=== PATIENT | female | born 1950 | race African-American/Black ===

== ENCOUNTER 2020-04-26 15:50 | Emergency (ER) | payer BC, MEDICARE ==
--- NOTE | 2020-04-26 15:59 | ER Document Report ---
ED Medical Screen (RME) - General Chief Complaint: Hand Injury Stated Complaint: LEFT HAND/WRIST INJURY Time Seen by Provider: 04/26/20 15:56 Notes: HPI: 69-year-old female presenting after fall down some stairs last night. Injured the left wrist. Believes she may have hit her head but did not lose consciousness. Is not on blood thinners. Denies other injuries or complaints. Patient is right-hand dominant. PHYSICAL EXAMINATION: Deformity and bruising is noted to the left wrist. No tenderness over the radial head on palpation of the left elbow. No visible head injury. Answering all questions appropriately. Last ate or drank 30 to 45 minutes ago I have greeted and performed a rapid initial assessment of this patient. A comprehensive ED assessment and evaluation of the patient, analysis of test results and completion of medical decision making process will be conducted by an additional ED providers. TRAVEL OUTSIDE OF THE [place] IN LAST 30 DAYS: No - Related Data Allergies/Adverse Reactions: No Known Allergies Allergy (Verified 04/26/20 15:55) Past Medical History Past Surgical History: Reports: Hx Breast Surgery - reduction - Immunizations Hx Diphtheria, Pertussis, Tetanus Vaccination: Yes
--- NOTE | 2020-04-26 16:46 | RADIOLOGY REPORT (SQ) ---
EXAM DESCRIPTION: WRIST LEFT 3 VIEWS IMAGES COMPLETED DATE/TIME: 04/26/2020 4:31 pm REASON FOR STUDY: wrist fracture COMPARISON: None. EXAM PARAMETERS: NUMBER OF VIEWS: Three views. TECHNIQUE: AP, lateral and oblique radiographic images acquired of the left wrist. LIMITATIONS: None. FINDINGS: MINERALIZATION: Normal. BONES: Comminuted fracture of the distal radius with 1.5 cm impaction and lateral displacement. Radi ocarpal articulation appears intact on the oblique -lateral projection. Scapholunate joint appears w idened at 4 mm suggesting ligament tear. 9 mm ulnar styloid avulsion fracture is 8 mm laterally disp laced. No radiopaque foreign body. OTHER: No other significant finding. IMPRESSION: Comminuted fracture of the distal radius with 1.5 cm impaction and lateral displacement. Radiocarpal articulation appears intact on the oblique projection. Scapholunate joint appears wide douglas at 4 mm suggesting ligament tear. 9 mm ulnar styloid avulsion fracture is 8 mm laterally displace d. TECHNICAL DOCUMENTATION: JOB ID: [id number] [id number] 2010 [employer]- All Rights Reserved Reading location - IP/workstation name: [email or web address]
--- NOTE | 2020-04-26 18:32 | ER Document Report ---
ED Hand/Wrist Injury - General Chief Complaint: Wrist Pain Stated Complaint: LEFT HAND/WRIST INJURY Time Seen by Provider: 04/26/20 15:56 Notes: This 69-year-old woman presents to the emergency department with a history of a fall down steps last night injuring her left forearm and wrist. She has an obvious deformity with swelling noted. She denies any other associated injuries. TRAVEL OUTSIDE OF THE [place] IN LAST 30 DAYS: No - Related Data Allergies/Adverse Reactions: No Known Allergies Allergy (Verified 04/26/20 15:55) Past Medical History - Social History Smoking Status: Never Smoker Family History: Reviewed & Not Pertinent Past Surgical History: Reports: Hx Breast Surgery - reduction - Immunizations Hx Diphtheria, Pertussis, Tetanus Vaccination: Yes Review of Systems - Review of Systems Notes: Constitutional: Negative for fever. HENT: Negative for sore throat. Eyes: Negative for visual changes. Cardiovascular: Negative for chest pain. Respiratory: Negative for shortness of breath. Gastrointestinal: Negative for abdominal pain, vomiting or diarrhea. Genitourinary: Negative for dysuria. Musculoskeletal: See HPI Skin: Negative for rash. Neurological: Negative for headaches, weakness or numbness. 10 point ROS negative except as marked above and in HPI. Physical Exam - Vital signs Vitals: Temp Pulse Resp BP Pulse Ox 99.4 F 110 H 18 132/76 H 97 04/26/20 15:59 04/26/20 15:59 04/26/20 15:59 04/26/20 15:59 04/26/20 15:59 - Notes Notes: PHYSICAL EXAMINATION: Physical Exam: General: Well-nourished well-developed 69-year-old female in no acute distress HEENT: NC/AT, pupils equal round and reactive to light, MM moist,nares clear, oropharynx clear, airway patent Neck: supple, no adenopathy, no masses. Good range of motion Lungs: clear, no wheezing, no rales no rhonchi CVS: Regular rate and rhythm no murmur gallop or rub Abdomen: Soft, active, nontender, no masses, no hepatosplenomegaly Ext: No edema, clubbing or cyanosis. Neuro: Alert and responsive, moving all 4 extremities on command, cranial nerves intact, no focal findings Skin: Intact no open lesions, no rash PSYCH: Normal mood, normal affect. Course - Re-evaluation Re-evalutation: 04/26/20 19:27 I discussed the patient with Dr. Pimentel, orthopedics, he has suggested that the patient be put in a fingertrap 5 pound weight and reduce the fracture put in a volar splint sling and follow-up in his office next week. The patient is told that she has a fracture that likely will require surgery she is to keep splint in place and sling until she sees the orthopedist next week. She is to call the office on Tuesday morning to schedule the appointment. Patient acknowledges understanding of this plan and is being discharged from the emergency department 04/26/20 19:37 Patient was placed in a fingertrap, improved alignment noted, a volar splint was applied and the arm was placed in a sling. - Vital Signs Vital signs: Temp Pulse Resp BP Pulse Ox 99.4 F 110 H 18 132/76 H 97 04/26/20 15:59 04/26/20 15:59 04/26/20 15:59 04/26/20 15:59 04/26/20 15:59 - Diagnostic Test Radiology reviewed: Image reviewed, Reports reviewed Radiology results interpreted by me: 04/26/20 19:28 X-ray left wrist reveal a comminuted fracture of the distal radius with a displacement of the distal fragment. Procedures - Immobilization Left Distal Wrist Time completed: 19:40 Pre-Proc Neuro Vasc Exam: Normal Immobilizer type: Short Leg Posterior Performed by: Provider assisted, Other - Tech and RN Post-Proc Neuro Vasc Exam: Normal Alignment checked and good: Yes Discharge - Discharge Clinical Impression: Closed left radial fracture Qualifiers: Encounter type: initial encounter Radius location: distal Fracture morphology: unspecified fracture morphology Qualified Code(s): S52.502A - Unspecified fracture of the lower end of left radius, initial encounter for closed fracture Condition: Good Disposition: HOME, SELF-CARE Instructions: Fractured Radius and Ulna ([facility]) Additional Instructions: You were seen in the emergency department tonight with a fracture to your distal ulna left hand. Please keep the splint in place, please wear the sling for comfort. You may use ibuprofen for pain or use the pain tablets that you are being sent home with. On Tuesday contact the orthopedist, Dr. Pimentel and you will be scheduled to be seen for further treatment. HOME CARE INSTRUCTIONS & INFORMATION: Thank you for choosing us for your medical needs. We hope you're satisfied with the care you received. After you leave, you must properly care for your problem and, at the same time, observe its progress. Any condition can change. Some illnesses can change rapidly over hours or days. If your condition worsens, return to the Emergency Department or see your physician promptly. ABOUT YOUR X-RAYS AND EKG'S: If you had an EKG or X-rays taken, they have been read by the Emergency Physician. The X-rays and EKG's will also be read by a Radiologist or [employer] within 24 hours. If discrepancies are noted, you will be notified by telephone. Please be certain the ED has a correct telephone number & address where you can be reached. Also, realize that some fractures or abnormalities do not show up on initial X-rays. If your symptoms continue, see your physician. ABOUT YOUR LABORATORY TEST: If you had laboratory tests, the results have been reviewed by the Emergency Physician. Some test results (for example cultures) may not be available for several days. You will be contacted if any test result shows you need additional treatment. Please be certain the ED has a correct telephone number and address where you can be reached. ABOUT YOUR MEDICATIONS: You will receive instructions on how to take your medicine on the prescription label you receive. Additional information may be provided by the Pharmacy. If you have questions afterwards, call the ED for clarification or further instructions. Some prescribed medications may cause drowsiness. Do not perform tasks such as driving a car or operating machinery without consulting your Pharmacist. If you feel you need a refill of pain medication, your condition will need re-evaluation. Please do not call for a refill of any medication. ABOUT YOUR SIGNATURE: Signature of this document acknowledges to followin. Understanding that you received emergency treatment and that you may be released before al medical problems are known or treated. Please be certain the ED has a correct phone number & address where you can be reached. 2. Acknowledgement that you will arrange for follow-up care as recommended. 3. Authorization for the Emergency Physician to provide information to your follow-up Physician in order to maximize your care. AT ANY TIME, IF YOUR SYMPTOMS CHANGE SIGNIFICANTLY OR WORSEN OR YOU DEVELOP NEW SYMPTOMS, RETURN TO THE EMERGENCY DEPARTMENT IMMEDIATELY FOR RE-EVALUATION. OUR GOAL IS TO PROVIDE EXCELLENT MEDICAL CARE! WE HOPE THAT WE HAVE MET YOUR EXPECTATIONS DURING YOUR EMERGENCY DEPARTMENT VISIT AND THAT YOU FEEL YOU HAVE RECEIVED EXCELLENT CARE! Referrals: IRENA PIMENTEL MD [ACTIVE STAFF] - Follow up as needed
[2020-04-26] MEDS ORDERED: HYDROCODONE/ACETAMINOPHEN 5-325 MG (6 TAB/ER DISP) PO PRN (19:42)
[2020-04-26 20:04] VITALS: BP 125/74
== END 2020-04-26 20:04 | disposition home or self-care (01) ==
LOC: ER 15:50
DX: S52.592A Other fractures of lower end of left radius, initial encounter for closed fracture (principal); S52.612A Displaced fracture of left ulna styloid process, initial encounter for closed fracture; W10.9XXA Fall (on) (from) unspecified stairs and steps, initial encounter
CPT/HCPCS: 99284; 73110; 29125; A9270

== ENCOUNTER 2020-05-09 10:36 | Day surgery (SDC) | payer MEDICARE ==
[~2020-05-09 10:36] MED LIST: CEFAZOLIN 2 GM/D5W RTU 2 GM/50 ML RTUPB IV ONE; CEFAZOLIN 2 GM/D5W RTU 2 GM/50 ML RTUPB IV PRN; DEXAMETHASONE SOD PHOSPHATE INJ 4 MG/1 ML VIAL ONE; FENTANYL CITRATE INJ/PF 100 MCG/2 ML AMPUL ONE; MIDAZOLAM 2 MG/2 ML INJ ONE; ONDANSETRON HCL INJ/PF 4 MG/2 ML SDV ONE; PROPOFOL INJ 200 MG/20 ML VIAL IV ONE
[2020-05-09] MEDS ORDERED: EPHEDRINE SULFATE INJ 50 MG/1 ML AMPULE ONE (11:15)
[2020-05-09] MEDS ORDERED: BUPIVACAINE HCL 0.25 % INJ/PF (2.5 MG/1 ML) 30 ML VIAL ONE (11:22)
[2020-05-09] MEDS ORDERED: LIDOCAINE 2% INJ (20 MG/ML) 20 ML MDV ONE (11:34)
[2020-05-09] MEDS ORDERED: ROPIVACAINE HCL 0.5% INJ/PF (5 MG/1 ML) 30 ML SDV ONE (11:34)
[2020-05-09] MEDS ORDERED: DIPHENHYDRAMINE HCL 50 MG/ML VIAL IV PRN (12:13)
[2020-05-09] MEDS ORDERED: MORPHINE SULFATE 10 MG/ML INJ IV PRN (12:13)
[2020-05-09] MEDS ORDERED: MEPERIDINE HCL/PF INJ 25 MG/1 ML DISP.SYRIN IV PRN (12:13)
[2020-05-09] MEDS ORDERED: ONDANSETRON HCL INJ/PF 4 MG/2 ML SDV IV PRN ×2 (12:13→16:02)
[2020-05-09] MEDS ORDERED: OXYCODONE-ACETAMINOPHEN 5-325 MG TABLET PO PRN ×2 (12:13→16:02)
[2020-05-09] MEDS ORDERED: FENTANYL CITRATE INJ/PF 100 MCG/2 ML AMPUL IV PRN ×3 (12:13)
[2020-05-09] MEDS ORDERED: PROMETHAZINE HCL INJ 25 MG/1 ML VIAL IV PRN ×2 (12:13)
[2020-05-09] MEDS ORDERED: HYDROMORPHONE HCL INJ/PF 2 MG/ML AMPULE ONE (14:10)
--- NOTE | 2020-05-09 14:35 | Operative Report ---
Operative Report DATE OF SURGERY: 05/09/20 PREOPERATIVE DIAGNOSIS: 1. Left four-part, intra-articular distal radius fract ure. 2. Left traumatic scapholunate ligament disruption POSTOPERATIVE DIAGNOSIS: 1. Left four-part, intra-articular distal radius fracture. 2. Left traumatic scapholunate ligament disruption OPERATION: 1. Open reduction internal fixation left 4 part intra-articular distal radius fracture. 2. Brachioradialis tendon lengthening. 3. Scapholu tan ligament repair with free tendon graft. 4. PIN neurectomy SURGEON: IRENA WILKERSON ANESTHESIA: GA COMPLICATIONS: None ESTIMATED BLOOD LOSS: Minimal PROCEDURE: Indications for procedure: The patient is a 69-year-old woman who sustained an extremely comminuted and displaced fracture of the left distal radius. Radiographs also demonstrated a complete disruption of the scapholunate ligament. Description of procedure: Following the induction of a general anesthetic and administration of 2 g of Ancef, the patient was positioned supine on the operating room table. All bony prominences were padded. The left upper extremity sterilely prepped with ChloraPrep and draped in standard fashion. An extended FCR volar approach was performed. Sharp incision was performed through skin with blunt dissection through the subcutaneous tissues. The radial artery was identified and protected. The brachioadialis tendon was Z lengthened for later repair. The first dorsal extensor compartment of the wrist was opened. At this point a comminuted fracture of the distal radius was identified. The proximal radius was pronated out of the way of the fracture. Fracture hematoma was excised. Intra-articular fracture fragments were anatomically aligned using the carpal bones as a template. The radius was then supinated back into its position and the distal fragments aligned onto the forearm. This was held into position with several clamps and K wires. A Eden volar locking plate was then applied through its gliding hole. Several unicortical locking screws were placed distally. Image intensification was brought in which demonstrated anatomic alignment of the fracture and correct placement of implants. The remaining distal locking screws were placed unit cortically. 2 additional bicortical locking screws were placed in the shaft. The wound was then copiously irrigated. A 2 mm portion of the FCR tendon was harvested as a tendon graft for later scapholunate reconstruction. The pronator was repaired back to the radius. The brachioradialis was repaired in its lengthened fashion. The subcutaneous tissue was closed with 2-0 Vicryl and skin reapproximated with 3-0 nylon. We next turned our attention to the scapholunate ligament repair. A dorsal incision was made. Sharp incision through skin with blunt dissection taking care to protect tacked the superficial radial and ulnar nerves. Third dorsal extensor compartment was opened and the EPL was retracted radially fourth dorsal extensor compartment was opened and common extensor was retracted ulnarly. At this point for pain relief a PIN dorsal neurectomy was performed. Distally based curvilinear capsulotomy was then performed. Scapholunate ligament was identified and was found to be unstable. 0.62 Gisel wires were placed in the scaphoid and in the lunate and the diastases was reduced. Fixation was accomplished with 3 Arthrex swivel lock DS suture anchors. These anchors were loaded with the FCR tendon graft and a suture tape. This construct was first docked into the scaphoid, then docked into the lunate, and then docked into the distal pole of the scaphoid to prevent scaphoid hyperflexion. The wound was then copiously irrigated the capsulotomy was imbricated back into position using the sutures remaining from scapholunate ligament reconstruction. The extensor retinaculum was then repaired side to side with 2-0 Vicryl. The subcutaneous tissue was repaired with 2-0 Vicryl. The skin was reapproximated with 3-0 nylon suture. Sterile dressing was then applied. The patient tolerated procedure well without complication was brought recovery in stable condition.
--- NOTE | 2020-05-09 16:09 | RADIOLOGY REPORT (SQ) ---
EXAM DESCRIPTION: WRIST LEFT 3 VIEWS; NO CHG FLUORO IMAGES COMPLETED DATE/TIME: 05/09/2020 2:22 pm REASON FOR STUDY: ORIF LEFT WRIST ASSISTED WITH FLUORO IN OR S52.572A OTH INTARTIC FRACTURE OF LOWE R END OF LEFT RADIUS, S63.391A TRAUMATIC RUPTURE OF OTH LIGAMENT OF RIGHT WRIST, I COMPARISON: 04/26/2020 left wrist three views FLUOROSCOPY TIME: 11 seconds 4 digital fluoroscopic images saved to PACS. TECHNIQUE: Intra-operative images acquired during surgical procedure to evaluate progress. NUMBER OF IMAGES: 4 digital fluoroscopic images LIMITATIONS: None. FINDINGS: Intra procedural imaging and fluoro during ORIF comminuted distal left radius fracture. G ood alignment. Please see the operative report for further details IMPRESSION: IMAGE(S) OBTAINED DURING PROCEDURE. COMMENT: Quality ID [id number]: Final reports for procedures using fluoroscopy that document radiation exp osure indices, or exposure time and number of fluorographic images (if radiation exposure indices are not available) Please consult full operative report of the attending physician for description of the procedure. TECHNICAL DOCUMENTATION: JOB ID: [id number] 2010 [employer]- All Rights Reserved Reading location - IP/workstation name: [email or web address]
--- NOTE | 2020-05-09 16:09 | RADIOLOGY REPORT (SQ) ---
EXAM DESCRIPTION: WRIST LEFT 3 VIEWS; NO CHG FLUORO IMAGES COMPLETED DATE/TIME: 05/09/2020 2:22 pm REASON FOR STUDY: ORIF LEFT WRIST ASSISTED WITH FLUORO IN OR S52.572A OTH INTARTIC FRACTURE OF LOWE R END OF LEFT RADIUS, S63.391A TRAUMATIC RUPTURE OF OTH LIGAMENT OF RIGHT WRIST, I COMPARISON: 04/26/2020 left wrist three views FLUOROSCOPY TIME: 11 seconds 4 digital fluoroscopic images saved to PACS. TECHNIQUE: Intra-operative images acquired during surgical procedure to evaluate progress. NUMBER OF IMAGES: 4 digital fluoroscopic images LIMITATIONS: None. FINDINGS: Intra procedural imaging and fluoro during ORIF comminuted distal left radius fracture. G ood alignment. Please see the operative report for further details IMPRESSION: IMAGE(S) OBTAINED DURING PROCEDURE. COMMENT: Quality ID [id number]: Final reports for procedures using fluoroscopy that document radiation exp osure indices, or exposure time and number of fluorographic images (if radiation exposure indices are not available) Please consult full operative report of the attending physician for description of the procedure. TECHNICAL DOCUMENTATION: JOB ID: [id number] 2010 [employer]- All Rights Reserved Reading location - IP/workstation name: [email or web address]
[2020-05-09] MEDS: NALOXONE HCL INJ/PF 0.4 MG/1 ML SDV ONE ×2 (16:19→16:24)
[2020-05-09 17:58] VITALS: BP 142/94
== END 2020-05-09 17:41 | disposition home or self-care (01) ==
LOC: OROUT 10:36
PROVIDERS: ATTEND Orthopaedic Surgery
DX: S52.572A Other intraarticular fracture of lower end of left radius, initial encounter for closed fracture (principal); S63.391A Traumatic rupture of other ligament of right wrist, initial encounter; Z03.818 Encounter for observation for suspected exposure to other biological agents ruled out; W19.XXXA Unspecified fall, initial encounter
CPT/HCPCS: 73110; 64415; 76942; 01830; 25609; 25320; 64772; C1713 ×7; J2795; J2250; J3490; J1100; J3010; J2310; J1170; J2405; J2704; J0690